=== PATIENT | female | born 1955 | race Two or more races ===

== ENCOUNTER 2021-11-21 11:03 | Emergency (ER) | payer OTHER ==
[~2021-11-21] VITALS: Ht 167.6 cm; Wt 83.9 kg
[2021-11-21] MEDS ORDERED: AVAPRO150 MG PO (11:35)
== END 2021-11-21 16:49 | disposition home or self-care (01) ==
LOC: ER 11:03
DX: M79.605 Pain in left leg (principal); M25.562 Pain in left knee; R60.0 Localized edema; I83.93 Asymptomatic varicose veins of bilateral lower extremities; M25.462 Effusion, left knee; I10 Essential (primary) hypertension

== ENCOUNTER 2022-02-03 07:23 | Emergency (ER) | payer OTHER ==
[~2022-02-03] VITALS: Ht 170.2 cm; Wt 90.7 kg
[~2022-02-03 07:23] MED LIST: AVAPRO150 MG PO
== END 2022-02-03 10:22 | disposition home or self-care (01) ==
LOC: ER 07:23
DX: R51.9 Headache, unspecified (principal); Z20.822 Contact with and (suspected) exposure to COVID-19